=== PATIENT | male | born 1970 | race Caucasian/White ===

== ENCOUNTER 2019-05-09 13:16 | Observation (INO) | payer BC ==
[2019-05-09] MEDS: SODIUM CHLORIDE 0.9% 1,000 ML IV SCH ×2 (14:53→21:28)
[2019-05-09 14:58] LABS: Basophils # (A) 0.1 k/uL (0-0.2); Basophils % (A) 1 %; Eosinophils # (A) 0.1 k/uL (0-0.7); Eosinophils % (A) 1 %; HCT 38.6 % (39.0-53.0); HGB 12.4 gm/dL (13.0-17.5); Lymphocytes # (A) 0.8 k/uL (1.0-4.8); Lymphocytes % (A) 10 %; MCH 30.7 pg (25.0-35.0); MCHC 32.2 g/dL (31.0-37.0); MCV 95.3 fL (80.0-100.0); Mean Platelet Volume 7.7; Monocytes # (A) 0.5 k/uL (0-1.0); Monocytes % (A) 6 %; Neutrophils # (A) 6.7 k/uL (1.3-7.7); Neutrophils % (A) 81 %; Platelet Count 396 k/uL (150-450); RBC 4.05 m/uL (4.30-5.90); RDW 13.2 % (11.5-15.5); WBC 8.2 k/uL (3.8-10.6)
[2019-05-09 15:10] LABS: ALT 23 U/L (4-49); AST 24 U/L (17-59); African American GFR (CKD) >90 (>60 ml/min/1.73 sqM); Albumin 3.9 g/dL (3.5-5.0); Alkaline Phosphatase 59 U/L (38-126); Anion Gap 4 mmol/L; Blood Urea Nitrogen 13 mg/dL (9-20); Calcium 9.7 mg/dL (8.4-10.2); Carbon Dioxide 31 mmol/L (22-30); Chloride 105 mmol/L (98-107); Glucose 93 mg/dL (74-99); Non-African American GFR(CKD) >90 (>60 ml/min/1.73 sqM); Potassium 4.5 mmol/L (3.5-5.1); Sodium 140 mmol/L (137-145); Total Bilirubin 0.3 mg/dL (0.2-1.3); Total Protein 6.9 g/dL (6.3-8.2)
[2019-05-09 15:13] LABS: INR 0.9 (<1.2); Prothrombin Time 9.7 sec (9.0-12.0)
[2019-05-09] MEDS ORDERED: NICOTINE 14MG/24HR PATCH TRANSDERM STA (15:13)
[2019-05-09] MEDS ORDERED: MORPHINE SULFATE 4 MG/ML SYRINGE IV STA (15:13)
[2019-05-09 15:19] LABS: Partial Thromboplastin Time 20.3 sec (22.0-30.0)
[2019-05-09] MEDS ORDERED: ACETAMINOPHEN TAB 325 MG TAB PO PRN (15:24)
[2019-05-09] MEDS ORDERED: NALOXONE 0.4 MG/ML 1 ML VIAL IV PRN (15:24)
--- NOTE | 2019-05-09 15:24 | ED ---
General Adult HPI - General Chief complaint: Extremity Injury, Lower Stated complaint: bacterial infection rt ankle Time Seen by Provider: 05/09/19 13:55 Source: patient, RN notes reviewed Mode of arrival: ambulatory Limitations: no limitations - History of Present Illness Initial comments: Patient is a pleasant 48-year-old male presenting to the emergency Department with right ankle pain and swelling. Patient has had symptoms intermittently over the past couple of months. Patient did see a finished cigar maker and had aspiration done. Patient was called today and told that there was infection and to come to the emergency department. Patient states discomfort is moderate at this time. Patient denies any fevers. Patient denies any redness. No other area of involvement. - Related Data Allergies Allergy/AdvReac Type Severity Reaction Status Date / Time Penicillins Allergy Unknown Verified 05/09/19 13:26 Childhood Review of Systems ROS Statement: Those systems with pertinent positive or pertinent negative responses have been documented in the HPI. ROS Other: All systems not noted in ROS Statement are negative. Constitutional: Denies: fever Eyes: Denies: eye pain ENT: Denies: ear pain Respiratory: Denies: cough Cardiovascular: Denies: chest pain Endocrine: Denies: fatigue Gastrointestinal: Denies: abdominal pain Genitourinary: Denies: dysuria Musculoskeletal: Reports: as per HPI, arthralgia. Denies: back pain Skin: Reports: as per HPI Past Medical History Past Medical History: Rheumatoid Arthritis (RA) History of Any Multi-Drug Resistant Organisms: None Reported Past Surgical History: No Surgical Hx Reported Past Psychological History: No Psychological Hx Reported Smoking Status: Current every day smoker Past Alcohol Use History: None Reported Past Drug Use History: None Reported General Exam Limitations: no limitations General appearance: alert, in no apparent distress Head exam: Present: normocephalic Eye exam: Present: normal appearance, PERRL ENT exam: Present: normal oropharynx Neck exam: Present: normal inspection Respiratory exam: Present: normal lung sounds bilaterally Cardiovascular Exam: Present: regular rate, normal rhythm Extremities exam: Present: other (Right ankle with moderate swelling extending somewhat to the lateral foot. There is also mild to moderate tenderness and mild warmth. No erythema.) Neurological exam: Present: alert. Absent: motor sensory deficit Skin exam: Present: normal color. Absent: rash, erythema Course Vital Signs 05/09/19 13:26 Temperature 98.5 F Pulse Rate 81 Respiratory 18 Rate Blood Pressure 163/99 O2 Sat by Pulse 99 Oximetry Medical Decision Making - Medical Decision Making Patient reevaluated and updated. Case was discussed with Dr. Spivey, who will admit for Dr. Corets. IV antibiotics will be started based off culture results for Staphylococcus aureus - Lab Data Result diagrams: 05/09/19 14:48 05/09/19 14:48 Lab Results 05/09/19 05/09/19 05/09/19 Range/Units 14:48 14:48 14:48 WBC 8.2 (3.8-10.6) k/uL RBC 4.05 L (4.30-5.90) m/uL Hgb 12.4 L (13.0-17.5) gm/dL Hct 38.6 L (39.0-53.0) % MCV 95.3 (80.0-100.0) fL MCH 30.7 (25.0-35.0) pg MCHC 32.2 (31.0-37.0) g/dL RDW 13.2 (11.5-15.5) % Plt Count 396 (150-450) k/uL Neutrophils % 81 % Lymphocytes % 10 % Monocytes % 6 % Eosinophils % 1 % Basophils % 1 % Neutrophils # 6.7 (1.3-7.7) k/uL Lymphocytes # 0.8 L (1.0-4.8) k/uL Monocytes # 0.5 (0-1.0) k/uL Eosinophils # 0.1 (0-0.7) k/uL Basophils # 0.1 (0-0.2) k/uL Sodium 140 (137-145) mmol/L Potassium 4.5 (3.5-5.1) mmol/L Chloride 105 (98-107) mmol/L Carbon Dioxide 31 H (22-30) mmol/L Anion Gap 4 mmol/L BUN 13 (9-20) mg/dL Creatinine 0.81 (0.66-1.25) mg/dL Est GFR (CKD-EPI)AfAm >90 (>60 ml/min/1.73 sqM) Est GFR (CKD-EPI)NonAf >90 (>60 ml/min/1.73 sqM) Glucose 93 (74-99) mg/dL Plasma Lactic Acid Neal 1.5 (0.7-2.0) mmol/L Calcium 9.7 (8.4-10.2) mg/dL Total Bilirubin 0.3 (0.2-1.3) mg/dL AST 24 (17-59) U/L ALT 23 (4-49) U/L Alkaline Phosphatase 59 (38-126) U/L Total Protein 6.9 (6.3-8.2) g/dL Albumin 3.9 (3.5-5.0) g/dL Disposition Clinical Impression: Septic arthritis Disposition: ADMITTED IP TO THIS HOSP Is patient prescribed a controlled substance at d/c from ED?: No Referrals: Brennan Nguyễn DO [Primary Care Provider] - 1-2 days Decision Time: 15:23
[2019-05-09] MEDS ORDERED: cefTRIAXone IN SWFI 1,000 MG/10 ML SYRINGE IVP STA (15:26)
[2019-05-09] MEDS: traMADol 50 MG TAB PO PRN (19:29)
[2019-05-09] MEDS: MORPHINE SULFATE 4 MG/ML SYRINGE IV PRN (19:30)
--- NOTE | 2019-05-09 23:41 | CONS ---
CONSULTATION DATE OF SERVICE: 05/09/2019 REASON FOR CONSULTATION: Right ankle septic arthritis. 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 The patient did have a history of rheumatoid arthritis as well. The ankle pain has been going on for the last few weeks, and previously he did have an aspirate and injection. The patient also had repeat aspiration and injection on Thursday. Apparently the fluid was slightly cloudy this time. The patient did receive a call from his casino dealer that he needed to go to the hospital, as the cultures came back positive with Staph with concern for right ankle septic arthritis. The patient has been complaining of pain to the right ankle area, more dull aching to sharp, about 6 to 7 out of 10, and no radiation. The ankle is slightly swollen but there is no redness. The patient denies having a fever. No nausea, no vomiting. No abdominal pain. No diarrhea. On arrival in the ER, the patient has been afebrile. The patient's white count is normal at 8.2. The patient did have blood cultures drawn. He was started on Rocephin and admitted to the hospital. Infectious Disease was consulted for further recommendations regarding antibiotic therapy. REVIEW OF SYSTEMS: Positive points have been mentioned in HPI. Rest of the systems are negative. PAST MEDICAL HISTORY: Rheumatoid arthritis. PAST SURGICAL HISTORY: No major surgery. SOCIAL HISTORY: Current everyday smoker. No drinking or any drug use. FAMILY HISTORY: No pertinent findings noticed. ALLERGIES: PENICILLIN with a childhood reaction. MEDICATIONS: The patient is currently on Rocephin 1 gram q.24 hours. He is on Tylenol, morphine sulfate, Narcan and Ultram. PHYSICAL EXAMINATION: Blood pressure is 137/96, pulse of 74, temperature 98.3. He is 92% on room air. General description is a middle-aged male lying in bed in no distress. No tachypnea or accessory muscle of respiration use. HEENT examination shows pallor. No scleral icterus. Oral mucosa membrane is dry. No pharyngeal erythema or thrush. NECK: Trachea is central. No thyromegaly. LUNGS: Unlabored breathing. Clear to auscultation anteriorly. No wheeze or crackle. HEART: S1, S2. Regular rate and rhythm. ABDOMEN: Soft. No tenderness. No guarding or rigidity. EXTREMITIES: No edema of the feet. Right knee slightly swollen and tender to touch. No significant redness was noticed. LABS: Hemoglobin is 12.4, white count 8.2, BUN of 13, creatinine 0.81. DIAGNOSTIC IMPRESSION AND PLAN: Patient with a positive culture from the right ankle area with Staphylococcus aureus with concern for septic arthritis in this patient who did have pain to the right ankle and has been injected in the past as well. Possible risk factor. PLAN: 1. Blood cultures have been obtained. Those will be followed to make sure patient is not bacteremic. 2. We will check a CRP and a sed rate and check an x-ray of the right ankle area. 3. Discontinue Rocephin and start the patient on cefazolin 2 grams q.8 hours. 4. We will follow up on his clinical condition and culture to further adjust medication if needed. Thank you for this consultation. Will follow this patient along with you. MMLEIF / MIKEN: [id number] /
[2019-05-10] MEDS: SODIUM CHLORIDE 0.9% 1,000 ML IV SCH ×2 (01:43→11:25)
[2019-05-10] MEDS: MORPHINE SULFATE 4 MG/ML SYRINGE IV PRN ×4 (01:43→18:43)
[2019-05-10] MEDS: traMADol 50 MG TAB PO PRN ×3 (04:53→17:39)
[2019-05-10 08:27] LABS: Basophils % (A) 1 %; Eosinophils # (A) 0.1 k/uL (0-0.7); Eosinophils % (A) 1 %; HCT 36.6 % (39.0-53.0); HGB 11.3 gm/dL (13.0-17.5); Lymphocytes # (A) 1.2 k/uL (1.0-4.8); Lymphocytes % (A) 20 %; MCHC 30.8 g/dL (31.0-37.0); MCV 97.1 fL (80.0-100.0); Mean Platelet Volume 7.8; Monocytes # (A) 0.4 k/uL (0-1.0); Monocytes % (A) 7 %; Neutrophils # (A) 4.1 k/uL (1.3-7.7); Neutrophils % (A) 70 %; Platelet Count 349 k/uL (150-450); RBC 3.77 m/uL (4.30-5.90); RDW 13.3 % (11.5-15.5); WBC 5.9 k/uL (3.8-10.6)
[2019-05-10 08:37] LABS: African American GFR (CKD) >90 (>60 ml/min/1.73 sqM); Anion Gap 4 mmol/L; Blood Urea Nitrogen 13 mg/dL (9-20); Carbon Dioxide 29 mmol/L (22-30); Chloride 106 mmol/L (98-107); Glucose 73 mg/dL (74-99); Non-African American GFR(CKD) >90 (>60 ml/min/1.73 sqM); Potassium 4.7 mmol/L (3.5-5.1); Sodium 139 mmol/L (137-145)
--- NOTE | 2019-05-10 08:45 | XR ---
EXAMINATION TYPE: XR ankle complete RT DATE OF EXAM: 05/10/2019 COMPARISON: NONE HISTORY: 48-year-old male pain, septic arthritis TECHNIQUE: 3 views FINDINGS: Generalized soft tissue swelling. Underlying joint effusion. There is eccentric narrowing along the l ateral aspect of the tibiotalar joint. Some spurring from the dorsal talar head/neck region. No peria rticular osteopenia. No acute fracture, subluxation, or dislocation. IMPRESSION: Generalized soft tissue swelling and underlying joint effusion. No periarticular osteopenia which is often seen with septic arthritis. However, there is eccentric joint space narrowing along the lateral tibiotalar joint which is abnormal. Arthrocentesis can be considered if concern for septic arthritis .
[2019-05-10 09:42] LABS: C Reactive Protein <5.0 mg/L (<10.0)
[2019-05-10] MEDS: ATORVASTATIN 10 MG TAB PO SCH (11:28)
[2019-05-10] MEDS: buPROPion XL 300 MG TAB.ER.24H PO SCH (11:30)
[2019-05-10] MEDS: ESCITALOPRAM 20 MG TAB PO SCH (11:30)
[2019-05-10] MEDS: clonazePAM 1 MG TAB PO PRN (11:36)
[2019-05-10 12:34] LABS: Erythrocyte Sedimentation Rate 28 mm/hr (0-15)
[2019-05-10] MEDS: TOFACITINIB CITRATE 11 MG PO SCH (12:52)
[2019-05-10] MEDS: NICOTINE 14MG/24HR PATCH TRANSDERM SCH (14:19)
[2019-05-10] MEDS ORDERED: MELATONIN 3 MG TABLET PO SCH (21:00)
--- NOTE | 2019-05-10 22:57 | PN ---
PROGRESS NOTE DATE OF SERVICE: 05/10/2019. REASON FOR FOLLOWUP: Right ankle septic arthritis. INTERVAL HISTORY: The patient is currently afebrile. The patient has been breathing comfortably. The patient denies having any chest pain or shortness of breath or cough. No nausea, vomiting. The pain to the right leg area is currently controlled. PHYSICAL EXAMINATION: Blood pressure is 159/81 with a pulse of 63, temperature 98.1. He is 96% on room air. General description is a middle-aged male lying in bed in no distress. RESPIRATORY SYSTEM: Unlabored breathing. Clear to auscultation anteriorly. HEART: S1, S2. Regular rate and rhythm. ABDOMEN: Soft. No tenderness. Right ankle still has minimal swelling and is tender to touch. No redness or any drainage. LABS/IMAGING: White count 5.9 with a creatinine 0.84. CRP is less than 5. Sed rate is 28. X-ray shows some fluid in the ankle joint, but no bony changes. DIAGNOSTIC IMPRESSION AND PLAN: Patient admitted to hospital with a positive culture from his right ankle done as an outpatient that has been positive for MSSA. The patient is currently afebrile. White count normal. Sedimentation rate is slightly elevated. The patient is covered with cefazolin 2 grams q.8 hours. We are waiting for the outpatient IV antibiotic coverage before discharge. program manager transportation is working on it. Continue with supportive care. MMODL / MIKEN: [id number] /
[2019-05-10] MEDS ORDERED: ENOXAPARIN 40 MG/0.4 ML SYRINGE SQ SCH (23:45)
--- NOTE | 2019-05-10 23:56 | P.HPIM ---
History of Present Illness H&P Date: 05/10/19 Chief Complaint: Right ankle pain History of presenting complaint: This is a very pleasant 48-year-old patient of Brennan PuentesLatah. Chronic stable medical conditions include hyperlipidemia, depression, insomnia. Patient follows with Dr. Bullock-health occupations instructor. Has a diagnosis of rheumatoid arthritis. That affects primarily his shoulders hands and ankles. Patient's had trouble with the right ankle for some time. And has received a total of at least 10 steroid injections for the same. Including 2 this year. Patient had injury to the left leg with a brace and was relatively not weightbearing. Patient had been putting weight on the right lower extremity and the right ankle. Patient now again presents with increasing pain in the right ankle. Denies any fever chills nausea vomiting. The joint was tapped by Dr. Bullock staph aureus was grown and patient was sent in for the same. Initially started on IV ceftriaxone and then switched over to IV Ancef by Dr. Womack from infectious disease. Appetite is good otherwise no nausea vomiting. Review of systems: GEN.: Tired EYES: None HEENT: None NECK: None RESPIRATORY: None CARDIOVASCULAR: None GASTROINTESTINAL: None GENITOURINARY: None MUSCULOSKELETAL: As above LYMPHATICS: None HEMATOLOGICAL: None PSYCHIATRY: None NEUROLOGICAL: Trouble sleeping Past medical history to include: Hyperlipidemia, depression, insomnia, rheumatoid arthritis Social history: Smokes about a pack a day, lives with her son. 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 Alcohol occasionally. Family history: Reviewed, noncontributory to presentation Physical examination: VITAL SIGNS: 98.5, 81, 18, 163/99, 99% room air GENERAL: BMI 33.5, sitting up in bed, not in distress. EYES: Pupils equal. Conjunctiva normal. HEENT: External appearance of nose and ears normal, oral cavity grossly normal. NECK: JVD not raised; masses not palpable. HEART: First and second heart sounds are normal; no edema. LUNGS: Respiratory rate normal; clear to auscultation. ABDOMEN: Soft, nontender, liver spleen not palpable, no masses palpable. PSYCH: Alert and oriented x3; mood and affect normal. MUSCULOSKELETAL: Right ankle is somewhat swollen compared to the left, with no bony prominences and disfigurement, some local tenderness NEUROLOGICAL: Cranial nerves grossly intact; no facial asymmetry, power and sensation grossly intact. LYMPHATICS: No lymph nodes palpable in the axilla and neck INVESTIGATIONS, reviewed in the clinical context: Culture results for the right ankle from Dr. Bullock's office show staph aureus White count 8.2 hemoglobin 12.4 potassium 4.5 creatinine 0.81 C-reactive protein less than 5 X-ray right ankle-October soft tissue swelling and decrease the joint space Assessment: -This is a patient who has a diagnosis of rheumatoid arthritis and has been having tonic pain in the right ankle for quite some time. Patient received a total of approximately 10 steroid injections of the same. Including 2 this year. Patient recently had injury to his left ankle and as a result was weightbearing more on the right ankle. Presented to his health occupations instructor increasing pain and swelling. Add was tapped his chronic staph aureus. His denies any fever and chills. Interestingly CRP is only less than 5. No leukocytosis. -Hyperlipidemia -Depression otherwise specified -Chronic insomnia -Obesity BMI 33.5 Plan: Patient started on IV Ancef. Home medications are to continue. Presented fluid between the form of naproxen. Lovenox for DVT prophylaxis. Consultations made to ID and rheumatology. Care was discussed at length question were answered. Past Medical History Past Medical History: Rheumatoid Arthritis (RA) History of Any Multi-Drug Resistant Organisms: None Reported Past Surgical History: No Surgical Hx Reported Past Psychological History: No Psychological Hx Reported Smoking Status: Current every day smoker Past Alcohol Use History: None Reported Past Drug Use History: None Reported Medications and Allergies Home Medications Medication Instructions Recorded Confirmed Type Atorvastatin [Lipitor] 10 mg PO DAILY 05/09/19 05/09/19 History DULoxetine HCL [Cymbalta] See Taper PO BID 05/09/19 05/09/19 History Escitalopram [Lexapro] 20 mg PO DAILY 05/09/19 05/09/19 History HYDROcodone/APAP 10-325MG [[place] 1 tab PO Q4HR PRN 05/09/19 05/09/19 History 10-325] Tofacitinib Citrate [Xeljanz Xr] 11 mg PO DAILY 05/09/19 05/09/19 History buPROPion HCL [Wellbutrin XL] 300 mg PO DAILY 05/09/19 05/09/19 History clonazePAM [KlonoPIN] 1 mg PO BID PRN 05/09/19 05/09/19 History predniSONE See Taper PO BID 05/09/19 05/09/19 History Allergies Allergy/AdvReac Type Severity Reaction Status Date / Time Penicillins Allergy Unknown Verified 05/09/19 16:39 Childhood Physical Exam Vitals: Vital Signs Temp Pulse Pulse Resp BP BP Pulse Ox 05/10/19 07:45 97.7 F 68 16 144/98 05/10/19 05:00 97.7 F 64 18 139/94 97 05/09/19 23:30 18 05/09/19 21:00 98.3 F 74 18 137/86 92 L 05/09/19 17:13 98.5 F 60 20 162/95 97 05/09/19 16:15 78 20 153/99 96 05/09/19 16:00 78 60 20 153/99 96 05/09/19 15:00 85 20 155/98 96 05/09/19 14:30 20 96 05/09/19 13:30 20 97 05/09/19 13:26 98.5 F 81 18 163/99 99 Intake and Output 05/09/19 05/10/19 05/10/19 22:59 06:59 14:59 Intake Total 1640 640 480 Balance 1640 640 480 Intake: Intake, IV Titration 920 400 Amount Sodium Chloride 0.9% 1, 920 000 ml @ 130 mls/hr IV . Q7H42M [facility] Rx#:[id number] ceFAZolin 2 gm In Sodium 400 Chloride 0.9% 50 ml @ 100 mls/hr IVPB Q8H [facility] Rx#: [id number] Oral 720 240 480 Other: # Voids 1 1 Weight 108.862 kg Results CBC & Chem 7: 05/10/19 07:11 05/10/19 07:11 Labs: Abnormal Lab Results - Last 24 Hours (Table) 05/09/19 05/09/19 05/09/19 Range/Units 14:48 14:48 14:48 RBC 4.05 L (4.30-5.90) m/uL Hgb 12.4 L (13.0-17.5) gm/dL Hct 38.6 L (39.0-53.0) % MCHC (31.0-37.0) g/dL Lymphocytes # 0.8 L (1.0-4.8) k/uL APTT 20.3 L (22.0-30.0) sec Carbon Dioxide 31 H (22-30) mmol/L Glucose (74-99) mg/dL 05/10/19 05/10/19 Range/Units 07:11 07:11 RBC 3.77 L (4.30-5.90) m/uL Hgb 11.3 L (13.0-17.5) gm/dL Hct 36.6 L (39.0-53.0) % MCHC 30.8 L (31.0-37.0) g/dL Lymphocytes # (1.0-4.8) k/uL APTT (22.0-30.0) sec Carbon Dioxide (22-30) mmol/L Glucose 73 L (74-99) mg/dL Thrombosis Risk Factor Assmnt - Choose All That Apply Any of the Below Risk Factors Present?: No
[2019-05-11] MEDS ORDERED: MELATONIN 3 MG TABLET PO PRN (01:40)
[2019-05-11] MEDS: traMADol 50 MG TAB PO PRN ×3 (02:10→19:57)
[2019-05-11] MEDS: SODIUM CHLORIDE 0.9% 1,000 ML IV SCH ×4 (03:40→19:59)
[2019-05-11] MEDS: MORPHINE SULFATE 4 MG/ML SYRINGE IV PRN ×4 (05:48→21:54)
[2019-05-11] MEDS: ENOXAPARIN 40 MG/0.4 ML SYRINGE SQ SCH (09:39)
[2019-05-11] MEDS: NICOTINE 14MG/24HR PATCH TRANSDERM SCH (09:39)
[2019-05-11] MEDS: clonazePAM 1 MG TAB PO PRN (09:39)
[2019-05-11] MEDS: buPROPion XL 300 MG TAB.ER.24H PO SCH (09:39)
[2019-05-11] MEDS: ESCITALOPRAM 20 MG TAB PO SCH (09:40)
[2019-05-11] MEDS: ATORVASTATIN 10 MG TAB PO SCH (09:40)
[2019-05-11] MEDS: TOFACITINIB CITRATE 11 MG PO SCH (12:15)
--- NOTE | 2019-05-11 13:06 | P.CON ---
Consult Note - . Consult date: 05/10/19 Assessment/Plan:: I've seen the patient in the office for his current problem. He sees me for treatment of RA and he is currently on Xeljanz 11 mg daily through me. Patient has been having this right ankle pain, redness, and swelling for some time. He stated he was having these symptoms prior to . Patient stated he went deer hunting and took a Medrol Dosepak which helped for a couple of days although symptoms returned. Patient stated while deer hunting he was drinking 2 beers daily although denies alcohol use since. Patient also did mention that he tripped and fell and hurt his right ankle around as well. He presented on 04/15/2019 complaining of worsening joint pain and swelling of his right foot/ankle. On exam he did have significant swelling, erythema, and warmth to his right foot/ankle. Ultrasound revealed significant synovitis with 4+ Doppler and patient received right ankle injection on 04/15/2019 and I also started patient on prednisone 30 mg two week taper. Labs performed on 04/15/2019 revealed a CBC with differential which showed low RBC count of 4.04, low hemoglobin at 12.9, low hematocrit at 37.7, an elevated absolute neutrophil 7.8, normal BMP, normal uric acid at 4.6, normal AST, normal ALT, elevated CRP at 8.3, and elevated ESR at 55. Vectra DA on 04/15/2019 revealed high disease activity of 80 which was up from 35 on 02/02/19. Patient placed a call on 04/20/2019 stating his ankle pain and swelling was much worse and he now had symptoms up to his knee and patient was told to go to ED for further evaluation. Patient presented for follow-up on 04/29/2019 at which time he stated he did go to urgent care who performed ultrasound to rule out DVT which was negative, they also performed x-ray of the left foot/ankle which was negative, and patient states they started him on Bactrim for possible cellulitis. He started a ten-day course of Bactrim on 04/22/2019. MRI of the right foot/ankle performed on 05/03/2019 revealed a large ankle joint effusion although no destructive bone changes identified to suggest infection, mild to moderate arthritic changes at the ankle joint with no bony erosions or destructive bone changes, scattered mild degenerative changes are present elsewhere, intermediate grade anterior talofibular demented strain, absence of a normal-appearing calcaneofibular ligament suggesting a ligament tear, mild to moderate fluid is present in the peroneal tendon sheath consistent with peroneal tenosynovitis, slightly increased signal with both peroneal longus and brevis tendons consistent with tendinosis. Patient came for follow-up again on 05/06/2021. Since MRI results did not correlate with his symptoms ankle aspiration was performed and 6 cc's of yellow, cloudy fluid was obtained. Synovial fluid analysis of the right ankle revealed abnormal color of yellow, turbid [place] [address], [place] [address], PMNs as the predominant inflammatory cell, negative crystals, Gram stain revealed 4+ WBCs, 1+ RBCs, 1+ gram-positive cocci, culture revealed 1+ Staphylococcus aureus, and no anaerobes isolated after 2 days. After receiving positive results patient was called and told to go to ER for possible septic joint. Patient will need to stop Xeljanz as this is an immunsuppresent. Patient can follow up with me in the office after his discharge to discuss further plan of care. I will need to see him within 2 weeks of discharge.
--- NOTE | 2019-05-11 21:52 | PN ---
PROGRESS NOTE DATE OF SERVICE: 05/11/2019 REASON FOR FOLLOWUP: Right ankle septic arthritis with MSSA. INTERVAL HISTORY: The patient is currently afebrile, has been breathing comfortably. Pain to the right ankle is currently controlled. No worsening. Denies any chest pain, shortness of breath, cough, no nausea, vomiting, abdominal pain, no diarrhea. PHYSICAL EXAMINATION: Blood pressure 149/93 with a pulse of 77, temperature 98.2. He is 95% on room air. General description is a middle-aged male lying in bed in no distress. Respiratory system: Unlabored breathing. Clear to auscultation anteriorly. Heart S1, S2 regular rate and rhythm. Abdomen soft, no tenderness. Right ankle minimal swelling. No redness, no drainage. LABS: INR is 1.0. Blood culture has been negative so far. DIAGNOSTIC IMPRESSION AND PLAN: Patient with right knee aspirate culture positive for MSSA in this patient who did have a previous injection of the right ankle though he did not have too many features of septic arthritis. However, the cultures could not be disregarded even he is currently covered with cefazolin 2 g daily to continue. Plan for at least 4 weeks of antibiotic and monitor clinical course closely. Continue supportive care. MMODL / IJN: [id number] /
--- NOTE | 2019-05-12 00:17 | P.PN ---
Progress Note - Text Progress Note Date: 05/11/19 Chief Complaint: Right ankle pain History of presenting complaint: This is a very pleasant 48-year[place]old patient [place]. Chronic stable medical conditions include hyperlipidemia, depression, insomnia. 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 Has a diagnosis of rheumatoid arthritis. That affects primarily his shoulders hands and ankles. Patient's had trouble with the right ankle for some time. And has received a total of at least 10 steroid injections for the same. Including 2 this year. Patient had injury to the left leg with a brace and was relatively not weightbearing. Patient had been putting weight on the right lower extremity and the right ankle. Patient now again presents with increasing pain in the right ankle. Denies any fever chills nausea vomiting. The joint was tapped by Dr. Bullock staph aureus was grown and patient was sent in for the same. Initially started on IV ceftriaxone and then switched over to IV Ancef by Dr. Womack from infectious disease. Appetite is good otherwise no nausea vomiting. Today-sitting up feeling, reviewed. Some decreased pain in the right ankle. Daughter the bedside. No fever no chills. Tolerating a diet. PICC line has been ordered. Review of systems: Was done for constitutional, cardiovascular, GI, pulmonary. relevant finding as above Active Medications Acetaminophen (Tylenol Tab) 650 mg PO Q6HR PRN PRN Reason: Mild Pain or Fever > 100.5 Atorvastatin Calcium (Lipitor) 10 mg PO DAILY [facility] Last Admin: 05/11/19 09:40 Dose: 10 mg Documented by: Bupropion HCl (Wellbutrin Xl) 300 mg PO DAILY [facility] Last Admin: 05/11/19 09:39 Dose: 300 mg Documented by: Clonazepam (Klonopin) 1 mg PO BID PRN PRN Reason: Anxiety Last Admin: 05/11/19 09:39 Dose: 1 mg Documented by: Enoxaparin Sodium (Lovenox) 40 mg SQ DAILY [facility] Last Admin: 05/11/19 09:39 Dose: 40 mg Documented by: Escitalopram Oxalate (Lexapro) 20 mg PO DAILY [facility] Last Admin: 05/11/19 09:40 Dose: 20 mg Documented by: Sodium Chloride (Saline 0.9%) 1,000 mls @ 130 mls/hr IV .Q7H42M [facility] Last Admin: 05/11/19 19:59 Dose: 130 mls/hr Documented by: Cefazolin Sodium 2 gm/ Sodium (Chloride) 50 mls @ 100 mls/hr IVPB Q8H [facility] Last Admin: 05/11/19 18:18 Dose: 100 mls/hr Documented by: Melatonin (Melatonin) 3 mg PO HS PRN PRN Reason: Insomnia Morphine Sulfate (Morphine Sulfate (Inj)) 4 mg IV Q4HR PRN PRN Reason: Severe Pain Last Admin: 05/11/19 21:54 Dose: 4 mg Documented by: Naloxone HCl (Narcan) 0.2 mg IV Q2M PRN PRN Reason: Opioid Reversal Nicotine (Habitrol 14mg/24hr Patch) 1 patch TRANSDERM DAILY [facility] Last Admin: 05/11/19 09:39 Dose: 1 patch Documented by: Patient's Own ( Tofacitinib Citrate [Xeljanz Xr] 11 Mg) 11 mg PO DAILY [facility] Last Admin: 05/11/19 12:15 Dose: Not Given Documented by: Tramadol HCl (Ultram) 50 mg PO Q6H PRN PRN Reason: Moderate Pain Last Admin: 05/11/19 19:57 Dose: 50 mg Documented by: Physical examination: VITAL SIGNS: 98.2, 77, 16, 149/93, 95% on room air GENERAL: BMI 33.5, sitting up in bed, not in distress. EYES: Pupils equal. Conjunctiva normal. HEENT: External appearance of nose and ears normal, oral cavity grossly normal. NECK: JVD not raised; masses not palpable. HEART: First and second heart sounds are normal; no edema. LUNGS: Respiratory rate normal; clear to auscultation. ABDOMEN: Soft, nontender, liver spleen not palpable, no masses palpable. PSYCH: Alert and oriented x3; mood and affect normal. MUSCULOSKELETAL: Right ankle is somewhat swollen compared to the left, with no bony prominences and disfigurement, some local tenderness INVESTIGATIONS, reviewed in the clinical context: Culture results for the right ankle from Dr. Bullock's office show staph aureus White count 8.2 hemoglobin 12.4 potassium 4.5 creatinine 0.81 C-reactive protein less than 5 X-ray right ankle-October soft tissue swelling and decrease the joint space Pro calcitonin 0.02 Assessment: -Acute right ankle septic arthritis growing staph aureus -Hyperlipidemia -Depression otherwise specified -Chronic insomnia -Obesity BMI 33.5 Plan: on IV Ancef. Discussed with Dr. Womack from ID. 4 weeks of IV antibiotics. PICC line has been ordered. Discussed with the patient.
[2019-05-12] MEDS: MORPHINE SULFATE 4 MG/ML SYRINGE IV PRN ×2 (04:18→09:19)
[2019-05-12] MEDS: SODIUM CHLORIDE 0.9% 1,000 ML IV SCH (04:21)
[2019-05-12] MEDS: ENOXAPARIN 40 MG/0.4 ML SYRINGE SQ SCH (07:24)
[2019-05-12] MEDS: TOFACITINIB CITRATE 11 MG PO SCH (07:24)
[2019-05-12] MEDS: ESCITALOPRAM 20 MG TAB PO SCH (08:19)
[2019-05-12] MEDS: traMADol 50 MG TAB PO PRN (08:19)
[2019-05-12] MEDS: clonazePAM 1 MG TAB PO PRN (08:19)
[2019-05-12] MEDS: NICOTINE 14MG/24HR PATCH TRANSDERM SCH (08:19)
[2019-05-12] MEDS: ATORVASTATIN 10 MG TAB PO SCH (08:19)
[2019-05-12] MEDS: buPROPion XL 300 MG TAB.ER.24H PO SCH (08:19)
[2019-05-12 12:18] VITALS: BP 153/93; PULSE 78; TEMP 98.6
[2019-05-12 12:21] VITALS: RESP 16
[2019-05-12] MEDS ORDERED: LIDOCAINE 0.5%-EPI 1:200,000 50 ML VIAL SQ ONE (13:14)
--- NOTE | 2019-05-12 13:42 | PN ---
PROGRESS NOTE DATE OF SERVICE: 05/12/2019 REASON FOR FOLLOWUP: Right ankle septic arthritis, MSSA. INTERVAL HISTORY: The patient is currently afebrile, has been breathing comfortably. The patient did mention swelling to the right ankle and leg has decreased. He has more mobility and less pain compared to when he came to the hospital. Denies having any chest pain, shortness of breath or cough. No abdominal pain or diarrhea. PHYSICAL EXAMINATION: Blood pressure is 153/93 with a pulse of 78, temperature 98.6. He is 96% on room air. General description is a middle-aged male lying in bed in no distress. RESPIRATORY SYSTEM: Unlabored breathing, clear to auscultation anteriorly. HEART: S1, S2. Regular rate and rhythm. ABDOMEN: Soft, no tenderness. Right leg swelling has decreased. LABS: No new labs have been obtained today. Blood culture has been negative. DIAGNOSTIC IMPRESSION AND PLAN: Patient with right septic arthritis. Outpatient culture positive for MSSA. Blood culture has been negative. Patient will get a Midline/PICC line today with plan for a total of 4 weeks of antibiotic therapy. Continue supportive care. MMODL / IJN: [id number] /
--- NOTE | 2019-05-12 13:48 | IR ---
PICC LINE PLACEMENT: HISTORY: Infection requiring long-term antibiotic therapy PROCEDURE: Ultrasound and fluoroscopic guidance of PICC line placement. COMPLICATIONS: None ANESTHESIA: 1. 1% Lidocaine locally. FINDINGS/TECHNIQUE: The procedure was explained to the patient. The risks, complications, benefits and alternatives were discussed and any questions were answered. Informed consent was obtained. The patient was placed supine on the fluoroscopic table and prepped and draped in the usual sterile formerly [facility] ion. Utilizing a 21 gauge needle and sonographic and fluoroscopic guidance, access in the vein was achieved and there is placement of a 0.018 guidewire. The vein is patent. A 4-F sheath was placed o lynne the guidewire. The guidewire and dilator were removed and a 4-F. PICC line was placed through th e sheath with the tip at the level of the SVC. The sheath was removed, the catheter was flushed and sutured into position. The patient was stable throughout the procedure and remained stable upon disc harge from the Department of Radiology. The vein puncture was patent under ultrasound. A buenrostro scale image was obtained to document patency of the vein punctured. All elements of the maximal barrier technique were utilized. FLUOROSCOPY TIME: 0.2 minutes, one image submitted IMPRESSION: Successful PICC line placement under ultrasound and fluoroscopic guidance.
--- NOTE | 2019-05-15 23:12 | P.DS ---
Providers Date of admission: 05/09/19 15:24 Expected date of discharge: 05/15/19 Attending physician: Palmer Spivey Consults: 05/09/19 15:24 Consult Physician Urgent Consulting Provider: Lyssa Rivera Consult Reason/Comments: Right ankle infection Do you want consulting provider notified?: Yes 05/10/19 11:13 Consult Physician Routine Consulting Provider: Lashaun Bullock Consult Reason/Comments: RA Do you want consulting provider notified?: Yes Primary care physician: [facility] Course: Chief Complaint: Right ankle pain History of presenting complaint: This is a very pleasant 48-year-old patient of Brennan Cortes. Chronic stable medical conditions include hyperlipidemia, depression, insomnia. 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 Has a diagnosis of rheumatoid arthritis. That affects primarily his shoulders hands and ankles. Patient's had trouble with the right ankle for some time. And has received a total of at least 10 steroid injections for the same. Including 2 this year. Patient had injury to the left leg with a brace and was relatively not weightbearing. Patient had been putting weight on the right lower extremity and the right ankle. Patient now again presents with increasing pain in the right ankle. Denies any fever chills nausea vomiting. The joint was tapped by Dr. Bullock staph aureus was grown and patient was sent in for the same. Initially started on IV ceftriaxone and then switched over to IV Ancef by Dr. Rivera from infectious disease. Appetite is good otherwise no nausea vomiting. Today-the well. Pain well controlled. PICC line. Home antibiotic being arranged. Discussed with the patient. 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 Discussed with Dr. rivera from ID. We will get 4 weeks of IV antibiotics[facility] Discussion and discharge planning more than 35 minutes Consultation: Dr. Jason rivera from ID Dr. Bullock from rheumatology Physical examination: VITAL SIGNS: 98.6-78-16-153/93, 96% room air GENERAL: Sitting up, comfortable. EYES: Pupils equal. Conjunctiva normal. HEENT: External appearance of nose and ears normal, oral cavity grossly normal. NECK: JVD not raised; masses not palpable. HEART: First and second heart sounds are normal; no edema. LUNGS: Respiratory rate normal; clear to auscultation. ABDOMEN: Soft, nontender, liver spleen not palpable, no masses palpable. PSYCH: Alert and oriented x3; mood and affect normal. MUSCULOSKELETAL: Right ankle is less swollen compared to the left, some local tenderness INVESTIGATIONS, reviewed in the clinical context: Culture results for the right ankle from Dr. Bullock's office show staph aureus White count 8.2 hemoglobin 12.4 potassium 4.5 creatinine 0.81 C-reactive protein less than 5 X-ray right ankle-October soft tissue swelling and decrease the joint space Pro calcitonin 0.02 Assessment: -Acute right ankle septic arthritis growing staph aureus. The joint is received about 10 steroid injections -Rheumatoid arthritis -Hyperlipidemia -Depression otherwise specified -Chronic insomnia -Obesity BMI 33.5 Disposition: Home Plan - Discharge Summary New Discharge Prescriptions: New ceFAZolin [Kefzol] 2 gm IVP Q8HR #112 vial Nicotine 14Mg/24Hr Patch [Habitrol] 1 patch TRANSDERM DAILY #14 patch Continue clonazePAM [KlonoPIN] 1 mg PO BID PRN PRN Reason: Anxiety buPROPion HCL [Wellbutrin XL] 300 mg PO DAILY Tofacitinib Citrate [Xeljanz Xr] 11 mg PO DAILY HYDROcodone/APAP 10-325MG [[place] 10-325] 1 tab PO Q4HR PRN PRN Reason: Pain Escitalopram [Lexapro] 20 mg PO DAILY DULoxetine HCL [Cymbalta] See Taper PO BID Atorvastatin [Lipitor] 10 mg PO DAILY predniSONE See Taper PO BID Discharge Medication List Atorvastatin [Lipitor] 10 mg PO DAILY 05/09/19 [History] DULoxetine HCL [Cymbalta] See Taper PO BID 05/09/19 [History] Escitalopram [Lexapro] 20 mg PO DAILY 05/09/19 [History] HYDROcodone/APAP 10-325MG [[place] 10-325] 1 tab PO Q4HR PRN 05/09/19 [History] Tofacitinib Citrate [Xeljanz Xr] 11 mg PO DAILY 05/09/19 [History] buPROPion HCL [Wellbutrin XL] 300 mg PO DAILY 05/09/19 [History] clonazePAM [KlonoPIN] 1 mg PO BID PRN 05/09/19 [History] predniSONE See Taper PO BID 05/09/19 [History] ceFAZolin [Kefzol] 2 gm IVP Q8HR #112 vial 05/11/19 [Rx] Nicotine 14Mg/24Hr Patch [Habitrol] 1 patch TRANSDERM DAILY #14 patch 05/12/19 [Rx] Follow up Appointment(s)/Referral(s): [facility], [NON-STAFF] - 1 Week MID,Infusion [NON-STAFF] - 1 Week Brennan Nguyễn DO [Primary Care Provider] - 05/17/19 9:30 am Lyssa Rivera MD [STAFF PHYSICIAN] - 05/31/19 10:30 am Ambulatory/Diagnostic Orders: Basic Metabolic Panel [LAB.AMB] Location: None Selected C Reactive Protein [LAB.AMB] Location: None Selected Complete Blood Count w/diff [LAB.AMB] Location: None Selected Erythrocyte Sedimentation Rate [LAB.AMB] Location: None Selected Patient Instructions/Handouts: Nicotine (Absorbed through the skin), Cefazolin (By injection), Septic Arthritis (DC) Activity/Diet/Wound Care/Special Instructions: [facility] will deliver your supplies tonight - they will call you [facility] will be out tonight to teach you how to infuse your antib iotics - they will call you. Discharge Disposition: HOME WITH HOME HEALTH SERVICES
== END 2019-05-12 14:30 | disposition home health service (06) ==
LOC: EC 13:16 → UNDOADMIN 15:24 → 6NMEDSUR 15:24 → INTOOBSV 15:24 → 6NMEDSUR 15:38 → 5NMEDONC 15:38 → UNDODISIN 05-12 14:30
PROVIDERS: ADMIT Hospitalist; ATTEND Hospitalist
PROC: 02HV33Z Insertion of Infusion Device into Superior Vena Cava, Percutaneous Approach (ICD-10-PCS; principal; 2019-05-12 07:30)
DX: M00.072 Staphylococcal arthritis, left ankle and foot (principal); B95.61 Methicillin susceptible Staphylococcus aureus infection as the cause of diseases classified elsewhere; M06.9 Rheumatoid arthritis, unspecified; F17.210 Nicotine dependence, cigarettes, uncomplicated; Z71.6 Tobacco abuse counseling; E78.5 Hyperlipidemia, unspecified; F51.04 Psychophysiologic insomnia; E66.9 Obesity, unspecified; Z68.33 Body mass index [BMI] 33.0-33.9, adult; Z88.0 Allergy status to penicillin; W01.0XXA Fall on same level from slipping, tripping and stumbling without subsequent striking against object, initial encounter; G89.29 Other chronic pain; Z79.899 Other long term (current) drug therapy; F32.9 Major depressive disorder, single episode, unspecified
CPT/HCPCS: 96376 ×4; 96361 ×4; 96365; 96366 ×3; 96367; 96372; 96375; 99284; 36415; 36573; 80053; 80048; 85652; 83605; 85025 ×2; 85610 ×2; 85730; 86140; 87040; 84145; 73610; G0378 ×5; C1751; C1769; S4990 ×4; J2270 ×4; J0690 ×3; J1650; J0696; 96374